=== PATIENT | female | born 1985 | race Caucasian/White ===

== ENCOUNTER 2016-11-04 06:24 | Inpatient (IN) | payer BC ==
[2016-11-04] MEDS ORDERED: Sodium Chloride 0.9% 10 ML Syringe FLUSH PRN (07:27)
[2016-11-04] MEDS ORDERED: Lactated Ringers 1,000 ML IV SCH (07:30)
[2016-11-04] MEDS: Clindamycin Phosphate 900 MG in Sodium Chloride 0.9% 100 ML IV SCH ×2 (08:05→16:07)
[2016-11-04] MEDS: Lactated Ringers 1,000 ML IV SCH ×2 (08:39→13:57)
[2016-11-04] MEDS: Clindamycin Phosphate 900 MG/6 ML AdvVial ONE (08:41)
--- NOTE | 2016-11-04 08:56 | PCM.LDHP ---
<Grace Pham - Last Filed: 11/04/16 09:04> L&D History of Present Illness - General Date of Service: 11/04/16 Admit Problem/Dx: Admission Diagnosis/Problem Admission Diagnosis/Problem 11/04/16 09:04 Intrauterine at 38-1/7 weeks gestation for SROM - early labor. Source of Information: Patient History Limitations: Reports: No limitations - History of Present Illness Introduction:: History of Present Illness: Crystal is a 31-year-old , 2 para 1-0- 0-1 female at 38-1/7 weeks gestation. She presents to L&D with SROM, which occurred at approximately 0500 this morning. The patient reports contractions that are irregular and minimal, but present. She denies vaginal bleeding and reports good movement. [place] is 11/17/16 based on early ultrasound completed on 05/08/16. She has had routine care. 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 She was started on tamiflu, prophylactically, in her third trimester but never had any signs or symptoms of influenza, or side effects with the tamiflu. Otherwise, course was benign. The influenza vaccine was decline but TDAP was given. [employer]ENT History: -0-0-1. LMP 02/10/17. The patient was not on control at conception. She reports history of regular menses prior to conception. Last pap smear 09/04/16 was normal. No history of STIs. [employer] Labs: Blood type B positive, antibody negative. Patient is rubella immune , VDRL/RPR nonreactive, HBsAg negative, HIV negative. Negative for chlamydia and gonorrhea. GBS positive. The patient is allergic to amoxicillin but GBS is sensitive to both vancomycin and clindamycin, so she will receive clindamycin. She does plan to breastfeed. Medications: - Calcium, 600mg oral tablet, daily - vitamins, daily Allergies: - Ceclor - Amoxicillin - Suprax The patient does not remember what her reaction was to these medications as she was a young child at the time and has not taken these medications since. Past Medical History: Noncontributory. Past Surgical History: No past surgical history. Family History: - Mother is alive and well. - Father is alive and has hypertension. - MGM is alive and has history of Leukemia. - MGF is also alive and is in remission from Leukemia. - PGM is alive with diabetes. - PGF is , cause unknown. - No family history of bleeding or clotting problems, or reactions to anesthesia. The patient's is a carrier for cystic fibrosis and does have a sister with cystic fibrosis. - There is a family member on the 's side with muscular dystrophy. 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 She drinks alcohol occasionally, when not , but denies use of tobacco products and illicit drugs. Review of systems: - General: No weakness or fatigue. No subjective fever or night sweats. - HEENT: No headache, dizziness, changes in vision. No sore throat. - Cardiovascular: No palpitations or angina. - Respiratory: No shortness of breath, coughing, or wheezing. - GI: Good appetite. No nausea or vomiting. - Breasts: No skin changes or masses. - Genitourinary: Mild increased frequency and urgency related to . No hematuria or dysuria. - Musculoskeletal: No muscle weakness, pain, or swelling. - Neurologic: No numbness or paresthesias. Physical exam: - General: The patient is pleasant and comfortable in bed, in no acute distress - Vitals: BP is 108/66, weight was 222lbs on last evaluation 10/29/2016. heart rate is 125 beats per minute. - Skin: Warm and dry without lesions. - Neck: Supple without thyromegaly. - Cardiovascular: Regular rate and rhythm. - Lungs: Clear to auscultation bilaterally. - Breast exam: deferred, done at first visit and found to be normal. - Abdomen: Gravid uterus. Last fundal height on 10/29/2016 was 38cm. - Cervical exam: 2cm/90%/-2/mid/soft - Extremities and neurologic: Exam grossly within normal limits. - Related Data Allergies/Adverse Reactions: Allergies Allergy/AdvReac Type Severity Reaction Status Date / Time amoxicillin [Amoxicillin] Allergy Cannot Verified 11/01/16 10:15 Remember cefixime [From Suprax] Allergy Cannot Verified 11/01/16 10:15 Remember cefotaxime Allergy Cannot Verified 11/01/16 10:15 Remember Home Medications: Home Meds Calcium Carbonate/Vitamin D3 [Calcium 500 + Vit D Caplet] 1 each PO DAILY [History] Vits #90/Iron Fum/FA [ Formula] 1 each PO DAILY 11/04/16 [ History] Past Medical History - Past Health History Medical/Surgical History: Denies Medical/Surgical History Musculoskeletal History: Reports: Other (see below) Other Musculoskeletal History: collarbone fx age 11 - Past Surgical History Musculoskeletal Surgical History: Reports: None Social & Family History - Family History Immunologic: Reports: None Oncologic: Reports: Leukemia Other Oncologic Family History: granparents-maternal - Tobacco Use Smoking Status *Q: Never Smoker Second Hand Smoke Exposure: No - Caffeine Use Caffeine Use: Reports: None - Alcohol Use Days Per Week of Alcohol Use: 0 - Recreational Drug Use Recreational Drug Use: No H&P Review of Systems - Review of Systems: Review Of Systems: See Below L&D Exam - Exam Exam: See Below - Vital Signs Weight: 120.656 kg - Patient Data Lab Results last 24 hrs: Laboratory Results - last 24 hr 11/04/16 Range/Units 07:50 WBC 10.39 H (3.98-10.04) K/mm3 RBC 4.23 (3.98-5.22) M/mm3 Hgb 12.6 (11.2-15.7) gm/L Hct 36.9 (34.1-44.9) % MCV 87.2 (79.4-94.8) fl MCH 29.8 (25.6-32.2) pg MCHC 34.1 (32.2-35.5) g/dl RDW Std Deviation 40.7 (36.4-46.3) fL Plt Count 234 (182-369) K/mm3 MPV 10.1 (9.4-12.3) fl Result Diagrams: 11/04/16 07:50 Orders Last 24hrs: Active Orders 24 hr Category Date Time Status Activity as Tolerated [RC] PFP Care 11/04/16 07:32 Active Communication Order [RC] ASDIRECTED Care 11/04/16 07:32 Active Heart Tones [RC] ASDIRECTED Care 11/04/16 07:32 Active Notify Provider [RC] PFP Care 11/04/16 07:32 Active Notify Provider [RC] PRN Care 11/04/16 07:32 Active Peripheral IV Care [RC] . DIRECTED Care 11/04/16 07:32 Active Vital Signs [RC] PER UNIT ROUTINE Care 11/04/16 07:32 Active Clear Liquid Diet [DIET] Diet 11/04/16 Breakfast Active Clindamycin Phosphate [Cleocin] 900 mg Med 11/04/16 08:30 Active Sodium Chloride 0.9% [Normal Saline] 100 ml IV Q8H Lactated Ringers [Ringers, Lactated] 1,000 ml Med 11/04/16 07:30 Active IV ASDIRECTED Lactated Ringers [Ringers, Lactated] 1,000 ml Med 11/04/16 07:30 Active IV ASDIRECTED Sodium Chloride 0.9% [Saline Flush] Med 11/04/16 07:27 Active 10 ml FLUSH ASDIRECTED PRN Electronic Heart Tones Ext w TOCO [WOMSER] Oth 11/04/16 07:32 Ordered Routine Electronic Heart Tones Internal [WOMSER] Per Unit Oth 11/04/16 07:32 Ordered Routine Peripheral IV Insertion Adult [OM.PC] Routine Oth 11/04/16 07:32 Ordered Resuscitation Status Routine Resus Stat 11/04/16 07:27 Ordered Medication Orders Clindamycin Phosphate 900 mg/ (Sodium Chloride) 106 mls @ 100 mls/hr IV Q8H [facility] Last Admin: 11/04/16 08:05 Dose: 100 mls/hr Lactated Ringer's (Ringers, Lactated) 1,000 mls @ 100 mls/hr IV ASDIRECTED FELICIANO Last Admin: 11/04/16 08:39 Dose: 100 mls/hr Lactated Ringer's (Ringers, Lactated) 1,000 mls @ 125 mls/hr IV ASDIRECTED FELICIANO Sodium Chloride (Saline Flush) 10 ml FLUSH ASDIRECTED PRN PRN Reason: Keep Vein Open Assessment/Plan Comment:: Assessment: 1. 38-1/7 week intrauterine with spontaneous rutpure of membranes - early labor. 2. Group B strep positive - allergy to amoxicillin, sensitive to clindamycin. 3. Plans a natural labor but would like an epidural when appropriate. 4. Plans to nurse. 5. Tdap is up to date. Plan: 1. IV Pitocin if labor does not progress naturally in the next 2-3 hours. 2. Continue monitoring. 3. Give Clindamycin per protocol for GBS. 4. Epidural when necessary. 5. Anticipate normal spontaneous vaginal delivery. 6. Encourage nursing behavior. <Harjit Neves - Last Filed: 11/05/16 05:59> L&D History of Present Illness - General Admit Problem/Dx: Admission Diagnosis/Problem Admission Diagnosis/Problem Laboratory test result abnormal H&P Review of Systems - Review of Systems: Review Of Systems: See Below L&D Exam - Exam Exam: See Below - Vital Signs Vital Signs: Last Vital Signs Temp 36.4 C 11/05/16 04:22 Pulse 62 11/05/16 04:22 Resp 16 11/05/16 04:22 BP 111/57 L 11/05/16 04:22 Pulse Ox 98 11/05/16 04:22 - Patient Data Lab Results last 24 hrs: Laboratory Results - last 24 hr 11/04/16 Range/Units 07:50 WBC 10.39 H (3.98-10.04) K/mm3 RBC 4.23 (3.98-5.22) M/mm3 Hgb 12.6 (11.2-15.7) gm/L Hct 36.9 (34.1-44.9) % MCV 87.2 (79.4-94.8) fl MCH 29.8 (25.6-32.2) pg MCHC 34.1 (32.2-35.5) g/dl RDW Std Deviation 40.7 (36.4-46.3) fL Plt Count 234 (182-369) K/mm3 MPV 10.1 (9.4-12.3) fl Result Diagrams: 11/04/16 07:50 Problem List Initiated/Reviewed/Updated: Yes Orders Last 24hrs: Active Orders 24 hr Category Date Time Status Activity as Tolerated [RC] PER UNIT ROUTINE Care 11/04/16 18:03 Active Activity as Tolerated [RC] PFP Care 11/04/16 09:11 Inactive Communication Order [RC] ASDIRECTED Care 11/04/16 09:11 Inactive Notify Provider [RC] ASDIRECTED Care 11/04/16 09:01 Inactive Notify Provider [RC] PFP Care 11/04/16 09:11 Inactive Oxygen Therapy [RC] ASDIRECTED Care 11/04/16 09:01 Inactive Pulse Oximetry [RC] ASDIRECTED Care 11/04/16 09:01 Inactive Vital Signs [RC] 04,12,20 Care 11/04/16 18:03 Active Regular Diet [DIET] Diet 11/04/16 Dinner Active CBC W/O DIFF,HEMOGRAM [HEME] Routine Lab 11/05/16 17:57 Ordered Acetaminophen [Tylenol] Med 11/04/16 18:03 Active 650 mg PO Q4H PRN Benzocaine/Menthol [Dermoplast Pain Relief [place]] Med 11/04/16 18:03 Active See Dose Instructions TOP ASDIRECTED PRN Docusate Sodium [Colace] Med 11/04/16 18:03 Active 100 mg PO BID PRN Ibuprofen [Motrin] Med 11/04/16 18:03 Active 600 mg PO Q4H PRN Lanolin [Lansinoh HPA] Med 11/04/16 18:03 Active See Dose Instructions TOP ASDIRECTED PRN Vit with Ca/FA/Iron [ Plus Iron] Med 11/05/16 09:00 Active 1 each PO DAILY Witch Elizabeth [Tucks] Med 11/04/16 18:03 Active 1 pad TOP ASDIRECTED PRN Assess Lochia [WOMSER] Per Unit Routine Oth 11/04/16 18:03 Ordered Assess Uterine Involution [WOMSER] Per Unit Routine Oth 11/04/16 18:03 Ordered Breast Pump [WOMSER] Per Unit Routine Oth 11/04/16 18:03 Ordered Heat Therapy [OM.PC] PRN Oth 11/04/16 18:03 Ordered Heat Therapy [OM.PC] PRN Oth 11/05/16 18:03 Ordered Ice Therapy [OM.PC] Per Unit Routine Oth 11/04/16 18:03 Ordered Medication Administration Instruction [OM.PC] Routine Oth 11/04/16 18:03 Ordered Perineal Care [OM.PC] Per Unit Routine Oth 11/04/16 18:03 Ordered Sitz Bath [OM.PC] Per Unit Routine Oth 11/04/16 18:03 Ordered Resuscitation Status Routine Resus Stat 11/04/16 07:27 Ordered Medication Orders Acetaminophen (Tylenol) 650 mg PO Q4H PRN PRN Reason: mild pain or fever Benzocaine/Menthol (Dermoplast Pain Relief [place]) 0 gm TOP ASDIRECTED PRN PRN Reason: Perineal Comfort Measure Docusate Sodium (Colace) 100 mg PO BID PRN PRN Reason: Constipation Emollient Ointment (Lansinoh Hpa) 0 gm TOP ASDIRECTED PRN PRN Reason: Sore Nipples Ibuprofen (Motrin) 600 mg PO Q4H PRN PRN Reason: Mild pain or fever Last Admin: 11/04/16 23:21 Dose: 600 mg Prenat Multivit/Goal Umpire/Iron/Folic Ac ( Plus Iron) 1 each PO DAILY FELICIANO Johnson (Tucks) 1 pad TOP ASDIRECTED PRN PRN Reason: Hemorrhoid pain
[2016-11-04] MEDS ORDERED: Bupivacaine 0.25% 10 ML SDV ONE (09:00)
[2016-11-04] MEDS ORDERED: Ondansetron 4 MG/2 ML SDV IVPUSH PRN (09:01)
[2016-11-04] MEDS ORDERED: fentaNYL 100 MCG/2 ML SDV EPIDUR PRN (09:01)
[2016-11-04] MEDS ORDERED: ePHEDrine 50 MG/ML SDV IVPUSH PRN (09:01)
[2016-11-04] MEDS ORDERED: Bupivacaine/fentaNYL/NS 100 ML Bag EPIDUR SCH (09:15)
--- NOTE | 2016-11-04 12:28 | PCM.PREANE ---
Preanesthetic Assessment - Physical Assessment O2 Sat by Pulse Oximetry: 99 Respiratory Rate: 16 Vital Signs: Last Vital Signs Temp 36.8 C 11/04/16 08:00 Pulse 86 11/04/16 08:00 Resp 16 11/04/16 08:00 BP 120/90 11/04/16 08:00 Pulse Ox 99 11/04/16 08:00 Height: 1.78 m Weight: 120.656 kg - Lab Values: Laboratory Last Values WBC 10.39 K/mm3 (3.98-10.04) H 11/04/16 07:50 RBC 4.23 M/mm3 (3.98-5.22) 11/04/16 07:50 Hgb 12.6 gm/L (11.2-15.7) 11/04/16 07:50 Hct 36.9 % (34.1-44.9) 11/04/16 07:50 MCV 87.2 fl (79.4-94.8) 11/04/16 07:50 MCH 29.8 pg (25.6-32.2) 11/04/16 07:50 MCHC 34.1 g/dl (32.2-35.5) 11/04/16 07:50 RDW Std Deviation 40.7 fL (36.4-46.3) 11/04/16 07:50 Plt Count 234 K/mm3 (182-369) 11/04/16 07:50 MPV 10.1 fl (9.4-12.3) 11/04/16 07:50 - Allergies Allergies/Adverse Reactions: Allergies Allergy/AdvReac Type Severity Reaction Status Date / Time amoxicillin [Amoxicillin] Allergy Cannot Verified 11/01/16 10:15 Remember cefixime [From Suprax] Allergy Cannot Verified 11/01/16 10:15 Remember cefotaxime Allergy Cannot Verified 11/01/16 10:15 Remember PreAnesthesia Questionnaire - Past Health History Medical/Surgical History: Denies Medical/Surgical History Musculoskeletal History: Reports: Other (see below) Other Musculoskeletal History: nestor fx age 11 - Past Surgical History Musculoskeletal Surgical History: Reports: None - SUBSTANCE USE Smoking Status *Q: Never Smoker Second Hand Smoke Exposure: No Days Per Week of Alcohol Use: 0 Recreational Drug Use History: No - HOME MEDS Home Medications: Home Meds Calcium Carbonate/Vitamin D3 [Calcium 500 + Vit D Caplet] 1 each PO DAILY [History] Vits #90/Iron Fum/FA [ Formula] 1 each PO DAILY 11/04/16 [ History] - CURRENT (IN HOUSE) MEDS Current Meds: Current Medications Ephedrine Sulfate (Ephedrine Sulfate) 5 mg IVPUSH ASDIRECTED PRN PRN Reason: Hypotension Fentanyl (Sublimaze) 100 mcg EPIDUR Q3H PRN PRN Reason: Pain Fentanyl/Bupivacaine HCl (Fentanyl/Bupivacaine/Ns 2 Mcg-0.125% 100 Ml) 100 ml EPIDUR ASDIRECTED FELICIANO Clindamycin Phosphate 900 mg/ (Sodium Chloride) 106 mls @ 100 mls/hr IV Q8H FELICIANO Last Admin: 11/04/16 08:05 Dose: 100 mls/hr Lactated Ringer's (Ringers, Lactated) 1,000 mls @ 100 mls/hr IV ASDIRECTED FELICIANO Last Admin: 11/04/16 08:39 Dose: 100 mls/hr Lactated Ringer's (Ringers, Lactated) 1,000 mls @ 125 mls/hr IV ASDIRECTED FELICIANO Ondansetron HCl (Zofran) 4 mg IVPUSH ONETIME PRN PRN Reason: Nausea/Vomiting Sodium Chloride (Saline Flush) 10 ml FLUSH ASDIRECTED PRN PRN Reason: Keep Vein Open Discontinued Medications Clindamycin Phosphate (Cleocin) Confirm Administered Dose 900 mg .ROUTE .STK- MED ONE Stop: 11/04/16 07:35 Preanesthetic Assessment - ANESTHESIA/TRANSFUSION/FAMILY HX Anesthesia/Transfusion History: No Prior Anesthesia, No Prior Transfusion(s) Family History of Anesthesia Reaction: No Intubation History: Unknown - REVIEW OF SYSTEMS Constitutional: Reports: no symptoms MAPPING EDITOR: Reports: no symptoms Respiratory: Reports: no symptoms Cardiovascular: Reports: no symptoms GI: Reports: no symptoms (GERD) Other: Reports: None - PHYSICAL ASSESSMENT HR: 86 O2 Sat by Pulse Oximetry: 99 RR: 16 BP: 120/90 Temp: 36.8 C Vital Signs: Last Vital Signs Temp 36.8 C 11/04/16 08:00 Pulse 86 11/04/16 08:00 Resp 16 11/04/16 08:00 BP 120/90 11/04/16 08:00 Pulse Ox 99 11/04/16 08:00 Height: 1.78 m Weight: 102.512 kg NPO Status Date: 11/04/16 NPO Status Time: 11:30 ASA Class: 2 Mental Status: Alert & Oriented x3 Airway Class: Mallampati = 2 Dentition: Reports: Normal Dentition, Caries Thyro-Mental Finger Breadths: 3 Mouth Opening Finger Breadths: 3 ROM/Head Extension: Full Respiratory Status: lungs clear to auscultation bilaterally Cardiovascular Status: regular rate & rhythm, normal S1, S2, no murmur, blood pressure WNL - LAB Values: Laboratory Last Values WBC 10.39 K/mm3 (3.98-10.04) H 11/04/16 07:50 RBC 4.23 M/mm3 (3.98-5.22) 11/04/16 07:50 Hgb 12.6 gm/L (11.2-15.7) 11/04/16 07:50 Hct 36.9 % (34.1-44.9) 11/04/16 07:50 MCV 87.2 fl (79.4-94.8) 11/04/16 07:50 MCH 29.8 pg (25.6-32.2) 11/04/16 07:50 MCHC 34.1 g/dl (32.2-35.5) 11/04/16 07:50 RDW Std Deviation 40.7 fL (36.4-46.3) 11/04/16 07:50 Plt Count 234 K/mm3 (182-369) 11/04/16 07:50 MPV 10.1 fl (9.4-12.3) 11/04/16 07:50 Reviewed and noted. - ALLERGIES Allergies/Adverse Reactions: Allergies Allergy/AdvReac Type Severity Reaction Status Date / Time amoxicillin [Amoxicillin] Allergy Cannot Verified 11/01/16 10:15 Remember cefixime [From Suprax] Allergy Cannot Verified 11/01/16 10:15 Remember cefotaxime Allergy Cannot Verified 11/01/16 10:15 Remember - ANESTHESIA PLAN Preop Beta Kalyn: No Anesthesia Type Planned: Epidural - ACKNOWLEDGEMENTS Pt an Appropriate Candidate for the Planned Anesthesia: Yes Alternatives and Risks of Anesthesia Discussed w Pt/Guardian: Yes Pt/Guardian Understands and Agrees with Anesthesia Plan: Yes
[2016-11-04] MEDS ORDERED: Oxytocin/Lactated Ringers 10 UNIT/1,000 ML BAG IV SCH (13:00)
--- NOTE | 2016-11-04 18:02 | PCM.SN ---
- Free Text/Narrative Note: Crystal is a 31-year-old multigravida white female who was admitted with spontaneous rupture of membranes. She slowly progressed to complete cervical dilation by late afternoon on 11/04/2016. She pushed for a short period of time and delivered a viable, callejas, 3690 g (8 pound 2.2 ounce) male infant, 21.5 inches in length over an intact perineum in a direct OA position at 1735 hours. Apgars were 8 and 9.. The baby was placed on mom's abdomen. The cord was noted to be 3 vessels, was clamped x2 and cut by the father. Cord blood was obtained. The placenta delivered intact initials presentation at 1738 hours.. It appeared complete. Pitocin was administered IV to facilitate uterine tone after the baby was delivered. Estimated blood loss was 100 cc. There was a nuchal cord x1 which was loose and reduced over the baby's head. Patient plans to nurse.
[2016-11-04] MEDS ORDERED: Witch Hazel Medicated Pads 100/Jar TOP PRN (18:03)
[2016-11-04] MEDS ORDERED: Benzocaine/Menthol 20%-0.5% Spray 56 GM Canister TOP PRN (18:03)
[2016-11-04] MEDS ORDERED: Lanolin 100% Cream 7 GM Tube TOP PRN (18:03)
[2016-11-04] MEDS ORDERED: Docusate Sodium 100 MG Cap PO PRN (18:03)
[2016-11-04] MEDS: Ibuprofen 600 MG Tab PO PRN (23:21)
[2016-11-05] MEDS: Acetaminophen 325 MG Tab PO PRN ×3 (02:45→21:06)
[2016-11-05] MEDS: Ibuprofen 600 MG Tab PO PRN ×2 (06:47→15:35)
--- NOTE | 2016-11-05 09:18 | PCM48HPAN ---
Post Anesthesia Note - EVALUATION WITHIN 48HRS OF ANESTHETIC Vital Signs in Normal Range: Yes Patient Participated in Evaluation: Yes Respiratory Function Stable: Yes Airway Patent: Yes Cardiovascular Function Stable: Yes Hydration Status Stable: Yes Pain Control Satisfactory: Yes Nausea and Vomiting Control Satisfactory: Yes Mental Status Recovered: Yes - COMMENTS/OBSERVATIONS Free Text/Narrative:: Pt doing well. denies headache, fever/chills, nausea/vomiting. Reports return of normal strength and sensation in bilateral lower extremities. ambulating, taking p.o., and using restroom without problems. eating and drinking without problems. Reports epidural worked well during labor. felt some burning during pushing.
[2016-11-05] MEDS: Prenatal Multivitamin with Calcium/Folic Acid/Iron Tab PO SCH (09:28)
[2016-11-05] MEDS: Clindamycin Phosphate 900 MG/6 ML AdvVial ONE (11:43)
--- NOTE | 2016-11-05 13:08 | PCM.SN ---
- Free Text/Narrative Note: Subjective: Crystal is day 1 today. She is feeling good and is eager to shower. She notes lochia has decreased substantially from yesterday. Pain is minimal and controlled with ibuprofen. She is baby. Objective: - Vitals are stable - afebrile, no tachycardia. - Abdomen: soft, nontender, nondistended. uterus is below the umbilicus and firm. - Extremities: No edema. labs: hemoglobin 12.1, hematocrit 35.9%, WBCs 12.9 Assessment: 1. Patient is afebrile and doing well. 2. Discharge tomorrow morning and once baby is ready. 3. Follow-up with Dr. Neves in clinic in 6-weeks time. 4. Continue to encourage breast feeding.
[2016-11-06] MEDS: Ibuprofen 600 MG Tab PO PRN (01:38)
[2016-11-06] MEDS: Prenatal Multivitamin with Calcium/Folic Acid/Iron Tab PO SCH (09:06)
--- NOTE | 2016-11-06 13:46 | PCM.DCSUM1 ---
Discharge Summary - Hospital Course Free Text/Narrative:: Crystal is a 31-year-old multigravida white female who was admitted with spontaneous rupture of membranes. She slowly progressed to complete cervical dilation by late afternoon on 11/04/2016. She pushed for a short period of time and delivered a viable, callejas, 3690 g (8 pound 2.2 ounce) male infant, 21.5 inches in length over an intact perineum in a direct OA position at 1735 hours. Apgars were 8 and 9.. The baby was placed on mom's abdomen. The cord was noted to be 3 vessels, was clamped x2 and cut by the father. Cord blood was obtained. The placenta delivered intact initials presentation at 1738 hours.. It appeared complete. Pitocin was administered IV to facilitate uterine tone after the baby was delivered. Estimated blood loss was 100 cc. There was a nuchal cord x1 which was loose and reduced over the baby's head. Patient plans to nurse.) the patient has done well She is nursing without problems, well and voiding without concerns. She is ready for discharge. - Discharge Data Discharge Date: 11/06/16 Discharge Disposition: Home, Self-Care 01 Condition: Good - Patient Instructions Diet: Regular Diet as Tolerated (Nursing diet increase calories and calcium.) Activity: As Tolerated (No intercourse or tampons until bleeding resolves.) Driving: May Drive Today Showering/Bathing: May Shower (May take a bath.) Notify Provider of: Fever, Increased Pain, Swelling and Redness, Nausea and/or Vomiting - Discharge Plan Home Medications: Home Meds Calcium Carbonate/Vitamin D3 [Calcium 500 + Vit D Caplet] 1 each PO DAILY [History] Vits #90/Iron Fum/FA [ Formula] 1 each PO DAILY 11/04/16 [ History] Ibuprofen [IJD: Ibuprofen] 600 mg PO Q4H PRN #30 tablet 11/06/16 [Rx] Patient Handouts: , Care After Vaginal Delivery Referrals: Harjit Neves MD [Primary Care Provider] - (Return to clinic-Dr. Neves-6 weeks-[facility].) - Discharge Summary/Plan Comment DC Time >30 min.: No Discharge Summary/Plan Comment: Discharge instructions: 1. Discharge 2. Regular, high-fiber, nursing diet was increased calcium and calories as discussed with patient. 3. Precautions given concern increased pain, bleeding, temperature, signs/ symptoms of DVT/PE. 4. Medications medication was printed, discussed with him given to the patient 5. Return to clinic-Dr. Neves-6 weeks-[facility]. Diagnosis: Term -delivered Condition: Good - Patient Data Vitals - Most Recent: Last Vital Signs Temp 35.8 C 11/06/16 04:57 Pulse 71 11/06/16 04:57 Resp 18 11/06/16 04:57 BP 117/76 11/06/16 04:57 Pulse Ox 99 11/06/16 04:57 Weight - Most Recent: 102.512 kg I&O - Last 24 hours: Intake & Output 11/05/16 11/06/16 11/06/16 22:59 06:59 14:59 Intake Total 480 120 Balance 480 120 Med Orders - Current: Current Medications Acetaminophen (Tylenol) 650 mg PO Q4H PRN PRN Reason: mild pain or fever Last Admin: 11/05/16 21:06 Dose: 650 mg Benzocaine/Menthol (Dermoplast Pain Relief [place]) 0 gm TOP ASDIRECTED PRN PRN Reason: Perineal Comfort Measure Docusate Sodium (Colace) 100 mg PO BID PRN PRN Reason: Constipation Emollient Ointment (Lansinoh Hpa) 0 gm TOP ASDIRECTED PRN PRN Reason: Sore Nipples Ibuprofen (Motrin) 600 mg PO Q4H PRN PRN Reason: Mild pain or fever Last Admin: 11/06/16 01:38 Dose: 600 mg Prenat Multivit/[place]/Iron/Folic Ac ( Plus Iron) 1 each PO DAILY [facility] Last Admin: 11/06/16 09:06 Dose: 1 each Witch Elizabeth (Tucks) 1 pad TOP ASDIRECTED PRN PRN Reason: Hemorrhoid pain Discontinued Medications Bupivacaine HCl (Sensorcaine-Mpf 0.25%) 10 ml .ROUTE .STK-MED ONE Stop: 11/04/16 09:01 Clindamycin Phosphate (Cleocin) Confirm Administered Dose 900 mg .ROUTE .STK- MED ONE Stop: 11/04/16 07:35 Last Admin: 11/05/16 11:43 Dose: Not Given Ephedrine Sulfate (Ephedrine Sulfate) 5 mg IVPUSH ASDIRECTED PRN PRN Reason: Hypotension Fentanyl (Sublimaze) 100 mcg EPIDUR Q3H PRN PRN Reason: Pain Last Admin: 11/04/16 13:36 Dose: 100 mcg Fentanyl/Bupivacaine HCl (Fentanyl/Bupivacaine/Ns 2 Mcg-0.125% 100 Ml) 100 ml EPIDUR ASDIRECTED FELICIANO Last Admin: 11/04/16 13:37 Dose: 100 ml Clindamycin Phosphate 900 mg/ (Sodium Chloride) 106 mls @ 100 mls/hr IV Q8H FELICIANO Last Admin: 11/04/16 16:07 Dose: 100 mls/hr Lactated Ringer's (Ringers, Lactated) 1,000 mls @ 100 mls/hr IV ASDIRECTED FELICIANO Last Admin: 11/04/16 13:57 Dose: 100 mls/hr Lactated Ringer's (Ringers, Lactated) 1,000 mls @ 125 mls/hr IV ASDIRECTED FELICIANO Oxytocin/Lactated Ringer's (Pitocin In Lr 10 Units/1,000 Ml) 10 unit in 1,000 mls @ 12 mls/hr IV TITRATE FELICIANO; 2 MUNITS/MIN PRN Reason: Protocol Last Titration: 11/04/16 15:22 Dose: 4 munits/min, 24 mls/hr Ondansetron HCl (Zofran) 4 mg IVPUSH ONETIME PRN PRN Reason: Nausea/Vomiting Sodium Chloride (Saline Flush) 10 ml FLUSH ASDIRECTED PRN PRN Reason: Keep Vein Open *Q Meaningful Use (DIS) - VTE *Q VTE Criteria *Q: - Stroke *Q Stroke Criteria *Q: - AMI *Q AMI Criteria *Q:
[2016-11-06 14:30] VITALS: BP 134/78
== END 2016-11-06 12:50 | disposition home or self-care (01) | DRG 560 ==
LOC: JD.OBCHECK 06:24 → JD.OB 06:24 → JD.OBCHECK 09:11 → OBSVTOIN 17:34 → JD.OB 17:34
PROVIDERS: ADMIT Obstetrics & Gynecology; ATTEND Obstetrics & Gynecology
PROC: 10E0XZZ Delivery of Products of Conception, External Approach (ICD-10-PCS; principal; 2016-11-04)
PROC: 00HU33Z Insertion of Infusion Device into Spinal Canal, Percutaneous Approach (ICD-10-PCS; 2016-11-04)
PROC: 3E0R3CZ (ICD-10-PCS; 2016-11-04)
DX: O42.92 Full-term premature rupture of membranes, unspecified as to length of time between rupture and onset of labor (principal); O99.824 Streptococcus B carrier state complicating childbirth; O69.81X0 Labor and delivery complicated by cord around neck, without compression, not applicable or unspecified; Z3A.38 38 weeks gestation of pregnancy; Z37.0 Single live birth; Z88.1 Allergy status to other antibiotic agents; Z88.8 Allergy status to other drugs, medicaments and biological substances
CPT/HCPCS: 36415; 85027; A9270-GY; J2590; J3010; J7030; J7120

== ENCOUNTER 2017-03-06 17:51 | Emergency (ER) | payer BC ==
[2017-03-06 18:00] VITALS: BP 145/105
--- NOTE | 2017-03-06 22:05 | EDM.PDOC ---
<Jody Somers - Last Filed: 03/06/17 23:01> ED HPI GENERAL MEDICAL PROBLEM - General Chief Complaint: Abdominal Pain Stated Complaint: ABDOMINAL PAIN Time Seen by Provider: 03/06/17 18:30 Source of Information: Reports: Patient History Limitations: Reports: No Limitations - History of Present Illness INITIAL COMMENTS - FREE TEXT/NARRATIVE: Crystal is a 31 year-old female who presents today for complaints of right upper abdominal pain. Yesterday, she developed pain the the RUQ radiating to her back and went to the walk-in clinic. Her symptoms had subsided by the time she was evaluated at the walk-in clinic. She had lab work done. WBC was 11.14; AST ALT, Lipase, and Bilirubin were normal. RUQ ultrasound was ordered as an outpatient to evaluate for gallstones and scheduled for 03/12/2017. At the time, she was told to return to the ER if she develops symptoms. She remained pain free until 1700 today. She currently describes the pain as similar to what she experienced yesterday: located in the RUQ and radiating to her back. Her pain is described as less intense than yesterday (8/10 in severity) and can be described as "burning." She has associated nausea and diaphoresis, but no vomiting or diarrhea. She denies any fever, chills, shortness of breath, or chest pain. RLQ/RUQ Pain Score (Numeric/FACES): 8 - Related Data Allergies Allergy/AdvReac Type Severity Reaction Status Date / Time amoxicillin [Amoxicillin] Allergy Cannot Verified 03/06/17 18:00 Remember cefixime [From Suprax] Allergy Cannot Verified 03/06/17 18:00 Remember cefotaxime Allergy Cannot Verified 03/06/17 18:00 Remember Home Meds: Home Meds Vit 90/Iron Fum/Folic [ Formula] 1 each PO DAILY 11/04/16 [ History] Hyoscyamine Sulfate [Levsin-Sl] 0.125 mg SL Q4H PRN #20 tab.subl 03/06/17 [Rx] Levofloxacin [Levaquin] 500 mg PO Q24H #7 tablet 03/06/17 [Rx] Norgestrel-Ethinyl Estradiol [Elinest-28 Tablet] 1 each PO ASDIRECTED 03/06/17 [ History] Ondansetron HCl [Zofran] 4 mg PO Q6H PRN #20 tablet 03/06/17 [Rx] Past Medical History - Past Health History Medical/Surgical History: Denies Medical/Surgical History Gastrointestinal History: Reports: Cholelithiasis Musculoskeletal History: Reports: Other (See Below) Other Musculoskeletal History: nestor waller age 11 - Past Surgical History Musculoskeletal Surgical History: Reports: None Social & Family History - Family History Family Medical History: Noncontributory Immunologic: Reports: None Oncologic: Reports: Leukemia Other Oncologic Family History: granparents-maternal - Tobacco Use Smoking Status *Q: Never Smoker Second Hand Smoke Exposure: No - Caffeine Use Caffeine Use: Reports: Coffee - Alcohol Use Days Per Week of Alcohol Use: 0 - Recreational Drug Use Recreational Drug Use: No ED ROS GENERAL - Review of Systems Review Of Systems: See Below Constitutional: Reports: Diaphoresis. Denies: Fever, Chills, Malaise, Weakness , Fatigue Respiratory: Denies: Shortness of Breath, Pleuritic Chest Pain, Cough Cardiovascular: Denies: Chest Pain GI/Abdominal: Reports: Abdominal Pain (abdominal pain located in the RUQ radiating to back, ), Nausea. Denies: Constipation, Diarrhea, Decreased Appetite, Flatus : Denies: Dysuria, Flank Pain, Frequency Musculoskeletal: Reports: No Symptoms ED EXAM, GI/ABD - Physical Exam Exam Limited By: No Limitations General Appearance: Alert, No Apparent Distress Throat/Mouth: Normal Inspection, Normal Lips, Normal Gums Head: Normocephalic Neck: Supple, Non-Tender Respiratory/Chest: No Respiratory Distress, Lungs Clear, Normal Breath Sounds, No Accessory Muscle Use Cardiovascular: Regular Rate, Rhythm, No Edema, No Murmur, No Rub. No: Gallop/ S3, Gallop/S4, Friction Rub GI/Abdominal Exam: Normal Bowel Sounds (bowel sounds active in all 4 quadrants ) , Tender (RUQ tenderness with palpation, Positive Quezada's sign ) Back Exam: No: CVA Tenderness (L), CVA Tenderness (R) Neurological: Alert, Oriented, Normal Cognition Psychiatric: Normal Affect, Normal Mood Skin Exam: Warm, Dry, Intact Course - Vital Signs Last Recorded V/S: Last Vital Signs Temp 99.2 F 03/06/17 17:57 Pulse 92 03/06/17 17:57 Resp 18 03/06/17 17:57 BP 145/105 H 03/06/17 17:57 Pulse Ox 99 03/06/17 17:57 - Orders/Labs/Meds Orders: Active Orders 24 hr Category Date Time Status Gallbladder [Abdomen Ltd] [US] Stat Exams 03/06/17 20:24 Taken Labs: Laboratory Tests 03/06/17 03/06/17 Range/Units 18:58 18:58 WBC 14.36 H (3.98-10.04) K/mm3 RBC 4.42 (3.98-5.22) M/mm3 Hgb 13.2 (11.2-15.7) gm/L Hct 40.0 (34.1-44.9) % MCV 90.5 (79.4-94.8) fl MCH 29.9 (25.6-32.2) pg MCHC 33.0 (32.2-35.5) g/dl RDW Std Deviation 38.7 (36.4-46.3) fL Plt Count 327 (182-369) K/mm3 MPV 9.5 (9.4-12.3) fl Neut % (Auto) 70.1 (34.0-71.1) % Lymph % (Auto) 21.3 (19.3-51.7) % [place] % (Auto) 7.4 (4.7-12.5) % Eos % (Auto) 0.8 (0.7-5.8) Baso % (Auto) 0.2 (0.1-1.2) % Neut # (Auto) 10.07 H (1.56-6.13) K/mm3 Lymph # (Auto) 3.06 (1.18-3.74) K/mm3 [place] # (Auto) 1.06 H (0.24-0.36) K/mm3 Eos # (Auto) 0.11 (0.04-0.36) K/mm3 Baso # (Auto) 0.03 (0.01-0.08) K/mm3 Sodium 141 (136-145) mEq/L Potassium 3.7 (3.5-5.1) mEq/L Chloride 105 (98-107) mEq/L Carbon Dioxide 25 (21-32) mEq/L Anion Gap 14.7 (5-15) BUN 9 (7-18) mg/dL Creatinine 0.7 (0.55-1.02) mg/dL Est Cr Clr Drug Dosing 127.08 mL/min Estimated GFR (MDRD) > 60 (>60) mL/min BUN/Creatinine Ratio 12.9 L (14-18) Glucose 122 H (74-106) mg/dL Calcium 9.0 (8.5-10.1) mg/dL Total Bilirubin 0.2 (0.2-1.0) mg/dL GGT 45 (5-55) U/L AST 25 (15-37) U/L ALT 27 (14-59) U/L Alkaline Phosphatase 69 (46-116) U/L Total Protein 7.5 (6.4-8.2) g/dl Albumin 3.5 (3.4-5.0) g/dl Globulin 4.0 gm/dL Albumin/Globulin Ratio 0.9 L (1-2) - Re-Assessments/Exams Free Text/Narrative Re-Assessment/Exam: On exam, the patient has RUQ tenderness and a positive Quezada's sign and does have a low-grade fever (99.2 F). She is still c/o pain, but currently declines any pharmacological treatment for the pain or nausea. CBC, CMP, GGT, and RUQ ultrasound were ordered. Her WBC is elevated at 14.36, which is slightly more elevated than yesterday. AST, ALT, GGT, and Bilirubin are within normal limits. RUQ Ultrasound read by Wilber. Findings indicate multiple small gallstones in the gallbladder. Common bile duct diameter is 3.3 cm. No stones. No hydronephrosis. Given elevated WBC, will prescribe Levaquin. Prescriptions for Levsin and Ondansetron sent to pharmacy. Referral to Dr. Camacho. She will call and make an appointment. She was educated on return precautions, instructed to avoid fatty foods, and increase oral intake. The patient verbalized understanding of the treatment plan and is in agreement. Departure - Departure Disposition: Home, Self-Care 01 Clinical Impression: Cholelithiasis Qualifiers: Cholelithiasis location: gallbladder Cholecystitis presence: without cholecystitis Biliary obstruction: without biliary obstruction Qualified Code(s) : K80.20 - Calculus of gallbladder without cholecystitis without obstruction - Discharge Information Prescriptions: Hyoscyamine Sulfate [Levsin-Sl] 0.125 mg SL Q4H PRN #20 tab.subl PRN Reason: Abdominal Pain Levofloxacin [Levaquin] 500 mg PO Q24H #7 tablet Ondansetron HCl [Zofran] 4 mg PO Q6H PRN #20 tablet PRN Reason: Nausea/Vomiting Referrals: Hanane Hancock PA-C [Primary Care Provider] - Forms: ED Department Discharge Additional Instructions: Avoid high fat foods and dairy products If you start to develop pain, immediately take Levsin 0.4mg under your tongue Zofran 4mg every 6hours as needed for nausea Levaquin 500mg once a day for 7 days Call the clinic tomorrow to schedule an appointment with Dr. Camacho. Call [phone]. Return to ER with worsening pain, fever, or additional concerns - My Orders Last 24 Hours: My Active Orders 03/06/17 20:24 Gallbladder [Abdomen Ltd] [US] Stat - Assessment/Plan Last 24 Hours: My Active Orders 03/06/17 20:24 Gallbladder [Abdomen Ltd] [US] Stat <Jennifer Jacobson - Last Filed: 03/06/17 23:08> ED HPI GENERAL MEDICAL PROBLEM - General Source of Information: Reports: Patient History Limitations: Reports: No Limitations ED ROS GENERAL - Review of Systems Review Of Systems: See Below ED EXAM, GI/ABD - Physical Exam Exam: See Below Departure - Departure Time of Disposition: 22:48 Condition: Good
--- NOTE | 2017-03-07 08:04 | US ---
Limited abdominal ultrasound: Multiple real-time images were obtained. Visualized portions of the pancreas are within normal limits. Liver shows no focal parenchymal abnormality. Gallbladder shows multiple small layering gallstones. No gallbladder wall thickening is seen. No biliary duct dilatation is identified. Right kidney shows no hydronephrosis or mass with right kidney measuring 10.8 cm in length. Impression: 1. Multiple small layering gallstones. No gallbladder wall thickening or biliary duct dilatation is seen. 2. Other portions of the right upper quadrant abdominal ultrasound are unremarkable. Diagnostic code #3 I agree with preliminary report issued by [email or web address] ([facility] report finalized on 03/06/17, 11:34 PM Central Time)
== END 2017-03-06 23:13 | disposition home or self-care (01) ==
LOC: JD.ED 17:51
DX: K80.20 Calculus of gallbladder without cholecystitis without obstruction (principal); Z88.1 Allergy status to other antibiotic agents
CPT/HCPCS: 36415; 76705; 76705-26; 80053; 82977; 85025; 99283; 99284-25

== ENCOUNTER 2017-03-24 07:50 | Day surgery (SDC) | payer BC ==
[~2017-03-24 07:50] MED LIST: Lactated Ringers 1,000 ML IV SCH; Lidocaine 1% PF 2 ML SDV INJECT PRN; Lidocaine 1%/Sod Bicarbonate in NS 8.4% 1 ML Syringe PRN; Sodium Chloride 0.9% 10 ML Syringe FLUSH PRN
[2017-03-24] MEDS ORDERED: Ondansetron 4 MG/2 ML SDV ONE (08:16)
[2017-03-24] MEDS ORDERED: HYDROmorphone 1 MG/ML Syringe ONE (08:16)
[2017-03-24] MEDS ORDERED: Dexamethasone 4 MG/ML SDV ONE (08:16)
[2017-03-24] MEDS ORDERED: Rocuronium 50 MG/5 ML Vial ONE (08:16)
[2017-03-24] MEDS ORDERED: fentaNYL 250 MCG/5 ML SDV ONE (08:17)
[2017-03-24] MEDS ORDERED: Propofol 200 MG/20 ML SDV ONE (08:17)
--- NOTE | 2017-03-24 08:30 | PCM.PREANE ---
Preanesthetic Assessment - Anesthesia/Transfusion/Family Hx Anesthesia History: No Prior Anesthesia Family History of Anesthesia Reaction: No - Review of Systems General: No Symptoms Pulmonary: No Symptoms Cardiovascular: No Symptoms Gastrointestinal: No Symptoms Neurological: No Symptoms Other: Reports: None - Physical Assessment NPO Status Date: 03/23/17 NPO Status Time: 22:00 Pulse: 89 O2 Sat by Pulse Oximetry: 98 Respiratory Rate: 16 Blood Pressure: 135/88 Temperature: 36.3 C Height: 1.78 m Weight: 85.729 kg ASA Class: 1 Mental Status: Alert & Oriented x3 Airway Class: Mallampati = 2 Dentition: Reports: Normal Dentition Thyro-Mental Finger Breadths: 3 Mouth Opening Finger Breadths: 3 ROM/Head Extension: Full Lungs: Clear to Auscultation, Normal Respiratory Effort Cardiovascular: Regular Rate, Regular Rhythm - Lab Values: Laboratory Last Values Urine HCG, Qual Negative (NEGATIVE) 03/24/17 07:57 - Allergies Allergies/Adverse Reactions: Allergies Allergy/AdvReac Type Severity Reaction Status Date / Time amoxicillin [Amoxicillin] Allergy Cannot Verified 03/21/17 13:25 Remember cefixime [From Suprax] Allergy Cannot Verified 03/21/17 13:25 Remember cefotaxime Allergy Cannot Verified 03/21/17 13:25 Remember - Blood Blood Available: No Product(s) Available: None - Anesthesia Plan Pre-Op Medication Ordered: None - Acknowledgements Anesthesia Type Planned: General Anesthesia Pt an Appropriate Candidate for the Planned Anesthesia: Yes Alternatives and Risks of Anesthesia Discussed w Pt/Guardian: Yes Pt/Guardian Understands and Agrees with Anesthesia Plan: Yes PreAnesthesia Questionnaire - Past Health History Medical/Surgical History: Denies Medical/Surgical History HEENT History: Reports: None Cardiovascular History: Reports: None Respiratory History: Reports: None Gastrointestinal History: Reports: Cholelithiasis, Other (See Below) Other Gastrointestinal History: RUQ pain, biliary colic Genitourinary History: Reports: None 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: , 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 (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) Other OB/BYN History: amenorrhea, menorrhagia, Musculoskeletal History: Reports: Other (See Below) Other Musculoskeletal History: L clavicle fracture, back pain Neurological History: Reports: None Psychiatric History: Reports: None Endocrine/Metabolic History: Reports: None Hematologic History: Reports: Anemia Immunologic History: Reports: None Oncologic (Cancer) History: Reports: None Dermatologic History: Reports: None - Past Surgical History Head Surgeries/Procedures: Reports: None HEENT Surgical History: Reports: None Cardiovascular Surgical History: Reports: None Respiratory Surgical History: Reports: None Female Surgical History: Reports: None Male Surgical History: Reports: None Endocrine Surgical History: Reports: None Neurological Surgical History: Reports: None Musculoskeletal Surgical History: Reports: None Dermatological Surgical History: Reports: None - SUBSTANCE USE Smoking Status *Q: Never Smoker Second Hand Smoke Exposure: No Days Per Week of Alcohol Use: 0 Recreational Drug Use History: No - HOME MEDS Home Medications: Home Meds Vit 90/Iron Fum/Folic [ Formula] 1 each PO DAILY 11/04/16 [ History] Hyoscyamine Sulfate [Levsin-Sl] 0.125 mg SL Q4H PRN #20 tab.subl 03/06/17 [Rx] Norgestrel-Ethinyl Estradiol [Elinest-28 Tablet] 1 each PO ASDIRECTED 03/06/17 [ History] Ondansetron HCl [Zofran] 4 mg PO Q6H PRN #20 tablet 03/06/17 [Rx] Calcium Carbonate [Calcium] 600 mg PO DAILY 03/21/17 [History] - CURRENT (IN HOUSE) MEDS Current Meds: Current Medications Lactated Ringer's (Ringers, Lactated) 1,000 mls @ 125 mls/hr IV ASDIRECTED FELICIANO Stop: 03/24/17 23:00 Clindamycin Phosphate 900 mg/ (Sodium Chloride) 106 mls @ 100 mls/hr IV ONETIME ONE Stop: 03/24/17 09:28 Lidocaine HCl (Xylocaine-Mpf 1%) 0.25 ml INJECT ONETIME PRN PRN Reason: Prior to IV start Stop: 03/24/17 18:00 Discontinued Medications Dexamethasone (Dexamethasone) Confirm Administered Dose 8 mg .ROUTE .STK-MED ONE Stop: 03/24/17 08:17 Fentanyl (Sublimaze) Confirm Administered Dose 250 mcg .ROUTE .STK-MED ONE Stop: 03/24/17 08:18 Hydromorphone HCl (Dilaudid) Confirm Administered Dose 1 mg .ROUTE .STK-MED ONE Stop: 03/24/17 08:17 Lactated Ringer's (Ringers, Lactated) 1,000 mls @ 125 mls/hr IV ASDIRECTED FELICIANO Stop: 03/21/17 23:00 Lidocaine/Sodium Bicarbonate (Buffered Lidocaine 1% In Ns 8.4%) 0.25 ml .XX ONETIME PRN PRN Reason: Prior to IV Start Stop: 03/21/17 18:00 Ondansetron HCl (Zofran) Confirm Administered Dose 4 mg .ROUTE .STK-MED ONE Stop: 03/24/17 08:17 Propofol (Diprivan 20 Ml) Confirm Administered Dose 200 mg .ROUTE .STK-MED ONE Stop: 03/24/17 08:18 Rocuronium [place] (Zemuron) Confirm Administered Dose 50 mg .ROUTE .STK-MED ONE Stop: 03/24/17 08:17 Sodium Chloride (Saline Flush) 10 ml FLUSH ASDIRECTED PRN PRN Reason: Keep Vein Open Stop: 03/21/17 18:00
[2017-03-24] MEDS ORDERED: Ondansetron 4 MG/2 ML SDV IVPUSH PRN ×2 (08:34→15:30)
[2017-03-24] MEDS ORDERED: Metoclopramide 10 MG/2 ML SDV IVPUSH PRN (08:34)
[2017-03-24] MEDS ORDERED: fentaNYL 100 MCG/2 ML SDV IVPUSH PRN (08:34)
[2017-03-24] MEDS ORDERED: Clindamycin Phosphate 900 MG in Dextrose 5% in Water 100 ML IV ONE ×2 (08:40)
[2017-03-24] MEDS ORDERED: Scopolamine 1.5 MG Transdermal Patch TRDERM ONE (08:45)
[2017-03-24] MEDS ORDERED: Midazolam 1 MG/ML 2 ML SDV ONE (09:00)
[2017-03-24] MEDS ORDERED: HYDROmorphone 0.5 MG/0.5 ML Syringe IVPUSH PRN ×2 (09:30→12:41)
[2017-03-24] MEDS ORDERED: Bupivacaine 0.5%/EPINEPHrine 1:200,000 50 ML MDV ONE (09:38)
[2017-03-24] MEDS ORDERED: Lidocaine 1% with EPINEPHrine 1:100,000 20 ML MDV ONE (09:38)
[2017-03-24] MEDS ORDERED: EPINEPHrine 1 MG/ML SDV ONE (11:24)
[2017-03-24] MEDS ORDERED: Glycopyrrolate 0.2 MG/ML SDV ONE ×2 (11:24→11:48)
[2017-03-24] MEDS ORDERED: Neostigmine Methylsulfate 10 MG/10 ML MDV ONE (11:48)
--- NOTE | 2017-03-24 12:03 | PCM.POSTAN ---
POST ANESTHESIA ASSESSMENT - MENTAL STATUS Mental Status: Alert, Oriented - VITAL SIGNS Pulse Rate: 116 SaO2: 100 Resp Rate: 16 Blood Pressure: 132/70 Temperature: 37.4 C - RESPIRATORY Respiratory Status: Respiratory Rate WNL, Airway Patent, O2 Saturation Stable, Supplemental Oxygen - CARDIOVASCULAR CV Status: Pulse Rate WNL, Blood Pressure Stable - GASTROINTESTINAL GI Status: No Symptoms - PAIN Pain Score: 0 - POST OP HYDRATION Hydration Status: Adequate & Stable
[2017-03-24] MEDS ORDERED: Ketorolac 30 MG/ML SDV IVPUSH ONE (12:15)
--- NOTE | 2017-03-24 12:17 | PCM.OPNOTE ---
- General Post-Op/Procedure Note Date of Surgery/Procedure: 03/24/17 Operative Procedure(s): Laparoscopic cholecystectomy Findings: Small stones and biliary sludge Pre Op Diagnosis: Biliary colic secondary to cholelithiasis Post-Op Diagnosis: Chronic cholecystitis secondary to cholelithiasis Anesthesia Technique: General ET Tube Primary Surgeon: Marvin Camacho Pathology: Gallbladder and contents EBL in mLs: 2 Complications: None Condition: Good Free Text/Narrative:: After adequate general endotracheal tube anesthesia was obtained the patient's abdomen was prepped and draped sterilely for a laparoscopic cholecystectomy. After local analgesia was given a supraumbilical incision was made with a 15 blade through the skin. Metzenbaums scissors were used to dissect to the fascia which was opened in the midline sharply followed by insertion of a 12 mm camera port. CO2 pneumoperitoneum was obtained. X-rays revealed the findings above. 3-- 5 mm working ports were placed along the right subcostal margin. I grasped the dome of the gallbladder and retracted it along with the liver in a cephalad direction. I then grasped Guajrado's pouch and then dissected out the cystic duct and cystic artery and clipped the structures in continuity with 5 mm clips. They were divided with severe scissors. I then used the hook cautery to take the gallbladder down in a retrograde fashion. The gallbladder was placed in a bag and removed through through the umbilicus. The gallbladder bed was hemostatic and bile static. There was no obvious bowel injury or bile duct injury. I de -cannulated the abdomen under direct vision and there was no bleeding from the port sites. The camera port site was closed with a figure-of- eight 0 Vicryl suture. The subcutaneous tissues and skin were closed with Vicryl as well. Steri-Strips and gauze were used for the dressing. [employer] photographs were taken for the patient and for the record.
--- NOTE | 2017-03-24 13:31 | PCM48HPAN ---
Post Anesthesia Note - EVALUATION WITHIN 48HRS OF ANESTHETIC Vital Signs in Normal Range: Yes Patient Participated in Evaluation: Yes Respiratory Function Stable: Yes Airway Patent: Yes Cardiovascular Function Stable: Yes Hydration Status Stable: Yes Pain Control Satisfactory: Yes Nausea and Vomiting Control Satisfactory: Yes Mental Status Recovered: Yes
[2017-03-24] MEDS ORDERED: Acetaminophen/Codeine 300-30 MG Tab PO PRN (15:26)
[2017-03-24 15:41] VITALS: BP 117/67
[2017-03-24] MEDS ORDERED: Acetaminophen 325 MG Tab PO PRN (16:28)
== END 2017-03-24 18:14 | disposition home or self-care (01) ==
LOC: JD.SDS 07:50
PROVIDERS: ATTEND Surgery
PROC: 0FT44ZZ Resection of Gallbladder, Percutaneous Endoscopic Approach (ICD-10-PCS; principal; 2017-03-24)
DX: K80.10 Calculus of gallbladder with chronic cholecystitis without obstruction (principal); Z88.0 Allergy status to penicillin; Z88.1 Allergy status to other antibiotic agents; Z79.899 Other long term (current) drug therapy
CPT/HCPCS: 47562; 81025; A9270; J0171; J1100; J1170; J1885; J2250; J2405; J2710; J2765; J3010; J3490; J7060; J7120; 00790; J2704

== ENCOUNTER 2020-07-06 08:54 | Emergency (ER) | payer BC ==
[2020-07-06 09:15] VITALS: BP 132/91; PULSE 103
--- NOTE | 2020-07-06 09:42 | EDM.PDOC ---
ED HPI GENERAL MEDICAL PROBLEM - General Chief Complaint: Respiratory Problem Stated Complaint: COVID + Time Seen by Provider: 07/06/20 09:22 Source of Information: Reports: Patient, RN Notes Reviewed - History of Present Illness INITIAL COMMENTS - FREE TEXT/NARRATIVE: 34 yr old female became ill with covid about 9 days ago. Cough, dyspnea worse the last 2 to 3 days. No hx of asthma or lung problems. Has been moderately ill with the other covid sx as well. Treatments [employer]: Reports: Acetaminophen, NSAIDS Chest Pain Score (Numeric/FACES): 8 - Related Data Allergies Allergy/AdvReac Type Severity Reaction Status Date / Time amoxicillin [Amoxicillin] Allergy Cannot Verified 07/06/20 09:16 Remember cefaclor [From Ceclor] Allergy Cannot Verified 07/06/20 09:16 Remember cefixime [From Suprax] Allergy Cannot Verified 07/06/20 09:16 Remember cefotaxime Allergy Cannot Verified 07/06/20 09:16 Remember Home Meds: Home Meds Acetaminophen/Codeine [Tylenol with Codeine No.3 300MG/30MG] 1 tab PO Q4H PRN #20 tab 07/06/20 [Rx] Albuterol Sulfate [Albuterol Sulfate Hfa] 8.5 gm IH Q4HR PRN #1 hfa.aer.ad 07/06/20 [Rx] Past Medical History - Past Health History Medical/Surgical History: Denies Medical/Surgical History HEENT History: Reports: None Cardiovascular History: Reports: None Respiratory History: Reports: None Gastrointestinal History: Reports: Cholelithiasis Other Gastrointestinal History: RUQ pain, biliary colic Genitourinary History: Reports: None 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: , 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 (See Below) 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: amenorrhea, menorrhagia, Musculoskeletal History: Reports: Other (See Below) Other Musculoskeletal History: L clavicle fracture, back pain Neurological History: Reports: None Psychiatric History: Reports: None Endocrine/Metabolic History: Reports: None Hematologic History: Reports: Anemia Immunologic History: Reports: None Oncologic (Cancer) History: Reports: None Dermatologic History: Reports: None - Infectious Disease History Infectious Disease History: Reports: Novel Coronavirus - Past Surgical History GI Surgical History: Reports: Cholecystectomy Social & Family History - Family History Family Medical History: No Pertinent Family History Immunologic: Reports: None Oncologic: Reports: Leukemia Other Oncologic Family History: granparents-maternal - Tobacco Use Tobacco Use Status *Q: Never Tobacco User - Caffeine Use Caffeine Use: Reports: Coffee - Recreational Drug Use Recreational Drug Use: No ED ROS GENERAL - Review of Systems Review Of Systems: See Below Constitutional: Reports: Fever, Chills HEENT: Reports: Rhinitis, Throat Pain Respiratory: Reports: Shortness of Breath, Cough GI/Abdominal: Reports: Decreased Appetite. Denies: Abdominal Pain, Nausea, Vomiting Musculoskeletal: Reports: Other (achiness) Neurological: Reports: Dizziness ED EXAM, GENERAL - Physical Exam Exam: See Below General Appearance: Alert, Other (frequent nonprod cough) Head: Atraumatic Neck: Supple Respiratory/Chest: No Respiratory Distress, Lungs Clear, Normal Breath Sounds. No: Rhonchi, Wheezing Cardiovascular: Tachycardia Extremities: Normal Inspection Neurological: Alert, Oriented, No Motor/Sensory Deficits Skin Exam: Warm, Dry, Normal Color, No Rash Course - Vital Signs Last Recorded V/S: Last Vital Signs Temp 97.0 F 07/06/20 09:12 Pulse 103 H 07/06/20 09:12 Resp 20 07/06/20 09:12 BP 132/91 H 07/06/20 09:12 Pulse Ox 95 07/06/20 09:12 - Orders/Labs/Meds Orders: Active Orders 24 hr Category Date Time Status Chest 1V Frontal [CR] Stat Exams 07/06/20 09:24 Taken - Re-Assessments/Exams Free Text/Narrative Re-Assessment/Exam: 07/06/20 10:34 CXR shows very mild small bilat infiltrates, see Radiology report for details, sats have been good, 95 to 99 %. Departure - Departure Time of Disposition: 10:27 Disposition: Home, Self-Care 01 Condition: Fair Clinical Impression: COVID-19 virus infection, Bronchitis Dyspnea Qualifiers: Dyspnea type: unspecified Qualified Code(s): R06.00 - Dyspnea, unspecified - Discharge Information Prescriptions: Albuterol Sulfate [Albuterol Sulfate Hfa] 8.5 gm IH Q4HR PRN #1 hfa.aer.ad PRN Reason: Wheezing Acetaminophen/Codeine [Tylenol with Codeine No.3 300MG/30MG] 1 tab PO Q4H PRN #20 tab PRN Reason: Pain Referrals: Hanane Hancock PA-C [Primary Care Provider] - Forms: ED Department Discharge Additional Instructions: I do now have the Radiology report. Radiologist agrees you do have some small bilat patchy infiltrates that are compatable with mild covid viral pneumonia. Your oxygen levels here in the ED have been good running in the 95 to 99 % range. I have sent prescriptions to [facility] for and albuterol inhaler to use 2 puffs q 4 hr as needed for cough/wheezing/difficulty breathing and also some tylenol with codeine to help your cough, generalized discomfort and to help you better rest. It is expected that symptoms should improve over the next 3 to 5 days. Return to ED as needed. Sepsis Event Note (ED) - Evaluation Sepsis Screening Result: No Definite Risk - Focused Exam Vital Signs: Vital Signs Temp Pulse Resp BP Pulse Ox 07/06/20 09:12 97.0 F 103 H 20 132/91 H 95 - My Orders Last 24 Hours: My Active Orders 07/06/20 09:24 Chest 1V Frontal [CR] Stat - Assessment/Plan Last 24 Hours: My Active Orders 07/06/20 09:24 Chest 1V Frontal [CR] Stat
--- NOTE | 2020-07-10 09:26 | CR ---
PROCEDURE INFORMATION: Exam: XR Chest, 1 View Exam date and time: 07/06/2020 9:37 AM Age: 34 years old Clinical indication: Patient HX: Covid positive, cough onset 1 week ago TECHNIQUE: Imaging protocol: XR of the chest Views: 1 view. COMPARISON: No relevant prior studies available. FINDINGS: Lungs: Patchy bilateral opacities may represent multifocal pneumonia including COVID-19. Pleural space: Unremarkable. No pleural effusion. No pneumothorax. Heart/Mediastinum: Unremarkable. No cardiomegaly. Bones/joints: Unremarkable. IMPRESSION: Patchy bilateral opacities may represent multifocal pneumonia including COVID- 19. Thank you for allowing us to participate in the care of your patient. Dictated and Authenticated by: Patricia Wilkins MD 07/06/2020 11:20 AM Central Time ([place] & [place]) [facility]
== END 2020-07-06 10:50 | disposition home or self-care (01) ==
LOC: JD.ED 08:54
DX: U07.1 COVID-19 (principal); J40 Bronchitis, not specified as acute or chronic; Z88.1 Allergy status to other antibiotic agents
CPT/HCPCS: 71045; 71045-26; 99284-25